=== PATIENT | male | born 2005 ===

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

== ENCOUNTER 2025-01-28 21:33 | Emergency (ER) | payer SELFPAY ==
[2025-01-28 21:35] VITALS: BP 153/102
[2025-01-28 21:36] VITALS: BP 140/92; BMI 19.4
[2025-01-28 21:51] LABS: Hematocrit 44.5 % (39.0-52.0); Hemoglobin 16.0 g/dL (13.0-18.0); Mean Corp Hgb Conc. 36.0 g/dL (33.0-37.0); Mean Corpuscular Volume 87.6 fL (80.0-94.0); Nucleated Red Blood Cells % 0 % (-); Platelet Count 233 10^3/uL (130-400); Red Cell Dist. Width 11.4 % (11.5-14.5)
[2025-01-28 22:01] VITALS: BP 125/85
[2025-01-28 22:03] LABS: ALT (SGPT) 35 U/L (0-50); AST (SGOT) 21 U/L (17-59); Albumin 5.2 g/dl (3.5-5.0); Alkaline Phosphatase 113 U/L (38-126); Blood Urea Nitrogen 11 mg/dl (9-20); Calcium 9.5 mg/dl (8.4-10.2); Carbon Dioxide 25 mmol/L (22-30); Chloride 104 mmol/L (98-107); Estimated Creatinine Clearance > 125 ml/min; Glucose 134 mg/dl (70-99); Potassium 3.9 mmol/L (3.5-5.1); Sodium 136 mmol/L (135-145); Total Protein 7.6 g/dl (6.3-8.2); eGFR > 60.00
[2025-01-28 22:14] LABS: Troponin I < 0.012 ng/ml
--- NOTE | 2025-01-28 22:53 | ED.GENMED ---
History of Present Illness
General
Chief Complaint: Chest Pain
Source: patient
Time Seen by Provider: 01/28/25 22:18
History of Present Illness
History of Present Illness:
Note:
CHIEF COMPLAINT(S)
Chest tightness and occasional pain in the side of the hand.
HISTORY OF PRESENT ILLNESS
The patient is a 19-year-old male who presents with complaints of chest tightness predominantly localized around the anterior chest area, noting that sometimes the pain radiates to the side of the hand. The onset of symptoms began over the weekend,
approximately four days ago. The patient describes the sensation mainly as a feeling of pressure in the chest, which extends to the neck at times. The patient denies any associated shortness of breath or recent physical activities that might have
provoked the symptoms, noting that the discomfort began while he was at rest.
He has a history of similar chest pain in the past, for which he was evaluated in the hospital, with the possibility of gastrointestinal issues or musculoskeletal pain considered, but no definitive diagnosis was made. The patient denies previous
heart problems, stress tests, or any other significant cardiac history.
The patient also pointed out a past ear infection around Sunday of the last week but denies any concurrent fever, chills, nausea, vomiting, significant belly pain, respiratory symptoms, or limb issues apart from occasional vein pulsation. He
noted some nausea, though not significant, and remarked that his stool occasionally appears yellow.
SOCIAL DETERMINANTS AFFECTING HEALTH
The patient reports being currently unemployed and denies any history of smoking, alcohol, or drug use. No exposure to hazardous chemicals was noted apart from distant past possibilities.
FAMILY HISTORY
The patient mentions a family history of cardiac concerns, with his mother having 'horror memories' which requires clarification but likely refers to cardiac issues, and his sister diagnosed with heart arrhythmias.
REVIEW OF SYSTEMS
- Cardiovascular: Chest tightness, pressure radiating to the neck.
- Gastrointestinal: Occasional nausea, yellow-tinged stools.
- Musculoskeletal: Discomfort in the side of the hand.
- Respiratory: Denies shortness of breath.
PHYSICAL EXAM
- Heart: Sounds normal, no murmurs detected.
- Respiratory: Lungs clear on auscultation.
- Vitals: Oxygen saturation at 99%, blood pressure 125/85 mmHg.
Nursing notes reviewed and vital signs reviewed.
PLAN
1. Conduct blood tests, including a D-dimer, to rule out possible thromboembolic events. A computed tomography scan of the chest if D-dimer results are positive.
2. Continue monitoring vital signs and cardiac status.
DIFFERENTIAL DIAGNOSIS
The Differential Diagnosis includes, in no particular order and is not limited to:
1. Gastroesophageal reflux disease (GERD)
2. Musculoskeletal chest pain
3. Panic or anxiety disorder
4. Costochondritis
5. Peptic ulcer disease
6. Pulmonary embolism
7. Pneumonia
8. Pleural effusion
9. Pericarditis
10. Non-cardiac chest pain secondary to gastrointestinal distress
Disposition:
SUMMARY OF ENCOUNTER
The patient, a 19-year-old male, presented with chest pain lasting for the past four days. He described the pain as a feeling of pressure in his chest, extending to the neck at times. The chest pain had a past occurrence, but the cause was not
definitively diagnosed. In the emergency department, a normal EKG, normal troponin, normal D-dimer, and a normal chest x-ray were noted. Based on these findings, cardiac causes were unlikely. The patient has been discharged in an improved condition
and plans to follow up with his family doctor.
DISPOSITION
Discharge.
ASSESSMENT
The patients current episode of chest pain does not appear to be cardiac-related. Given the normal test results, the pain is likely non-cardiac in origin, possibly related to gastrointestinal or musculoskeletal causes as considered in his
differential diagnosis.
PLAN
The patient will follow up with his family doctor for further evaluation and management of chest pain.
INDEPENDENT REVIEW OF LABS AND INTERPRETATION OF TESTS
- My independent review of the EKG is normal.
- My independent review of the troponin is normal.
- My independent review of D-dimer is normal.
- My independent interpretation of the chest x-ray is normal.
FOLLOW-UP INSTRUCTIONS
The patient is to follow up with their family doctor for ongoing management and evaluation of his chest pain.
MEDICAL DECISION MAKING
Chronic conditions affecting care include the patients history of similar chest pain episodes. Differential diagnoses considered include gastrointestinal reflux disease (GERD), musculoskeletal chest pain, panic or anxiety disorder, costochondritis,
peptic ulcer disease, pulmonary embolism, pneumonia, pleural effusion, pericarditis, and non-cardiac chest pain secondary to gastrointestinal distress.
- Data:
Category 1: Tests and documents reviewed include EKG, troponin, D-dimer, and chest x-ray. All were independently interpreted as normal.
- Risk: Consideration of admission/observation was deemed unnecessary given the normal test results and the patients improved condition. Discharging the patient with a plan for follow-up care was considered safe.
DIAGNOSIS
- Chest pain, unspecified R07.9.
Past History
Past History
ED Past Medical History: None
Social History
Tobacco: Smoker (medical marijuana)
Drug: Marijuana (Medical marijuana)
Phy Exam
General Physical Exam
General Presentation: well appearing and no apparent distress
General Skin: warm and dry
General Habitus: normal
General Mental: alert and anxious
General Hydration: appears well hydrated
ENT Exam
ENT Exam: EOMI, pharynx normal, neck supple and normocephalic
Eye Exam
Eye Exam: PERRL, cornea clear and conjunctiva normal
Cardiovascular Exam
Cardiovascular Exam: regular rate/rhythm, no edema, no murmur and normal peripheral pulses
Pulmonary Exam
Pulmonary Exam: lungs clear, no respiratory distress, no rales, no crackles, no rhonchi, no stridor, no wheezing and no cough
Gastrointestinal Exam
Gastrointestinal Exam: normal bowel sounds, non tender, soft, no organomegaly, no pulsatile mass and non distended
Neurological Exam
Neurological Exam: alert, oriented x3, no motor deficits and speech normal
Musculoskeletal Exam
Musculoskeletal Exam: full ROM and no edema
Skin Exam
Skin Exam: normal color, warm/dry, no rash and no petechia
Psychiatric Exam
Psychiatric Exam: normal mood/affect
Scores
Heart Score for Chest Pain Patients
STEMI patient?: No
History: Slightly or Non-Suspicious
ECG: Normal
Age: </= 45 years
Risk Factors: No Risk Factors
Troponin: </= Normal Limit
Heart Score for Chest Pain Patients: 0
Heart Score Risk: 2.5% MACE over next 6 weeks
Course
Orders/Labs/Results
Orders:
Orders
01/28/25 21:35
Electrocardiogram (*1) Urgent
Reason for Study: Chest Pain
Cardiac Monitoring- Treatment ONCE
EKG- Treatment ONCE
IV Insert/Care/Rem.- Treatment PRN
O2 Therapy [RESP] Urgent
Titrate/Wean O2 to maintain O2 sat greater than (%): 90
Special Instructions: Maintain sats >/=90%
Pulse Ox/spot Check [RESP] Urgent
Quantity: 1
Special Instructions: ON ROOM AIR
01/28/25 21:42
Complete Blood Count/With Diff Urgent
Comprehensive Metabolic Panel Urgent
Troponin I Urgent
01/28/25 21:43
Chest [CR Chest - 2 Views ] Urgent
Comment:
Reason For Exam: chest pain
01/28/25 23:03
D-Dimer Urgent
Abnormal Lab Results
01/28/25
21:42
MCH 31.5 H pg
(27.0-31.0)
RDW 11.4 L %
(11.5-14.5)
Monocytes % 9.9 H %
(1.7-9.3)
Glucose 134 H mg/dl
(70-99)
Albumin 5.2 H g/dl
(3.5-5.0)
01/28/25 21:42
01/28/25 21:42
Vital Signs
Initial and Last Documented VS:
Initial Vital Signs
BP
153/102
01/28/25 21:35
Last Documented Vital Signs
Temp Pulse Resp BP Pulse Ox
98.5 F 76 23 127/73 98
01/28/25 21:36 01/29/25 00:15 01/29/25 00:15 01/29/25 00:00 01/28/25 23:34
*Radiology
Radiology exam reviewed: all reviewed NAD by ED Provider
*Pulse Oximetry
SaO2: 98
Oxygen Mode of Delivery: Room air
Patient hypoxic: no
*Director Medical [employer] Interpretation
Rate: normal
Interpretation: normal
Heart Rate: 88
Rhythm: sinus
*Critical Care Note
Total Time (30-74mins, 75-104mins- exclusive of procedures): Not Applicable
ED Attending Note
-
Portions of this chart may have been created with voice recognition software.� Occasional wrong word or��sound alike� substitutions may have occurred due to the inherent limitations of voice recognition software.
Discharge Plan
Departure
Patient Disposition: Home (Routine Discharge)
Date of Disposition: 01/29/25
Time of Disposition: 00:32
Patient with high blood pressure during this ER visit?: Yes
Condition: Good
Discharge Problem:
Chest pain
Instructions: Chest Pain PCP Follow Up, BLOOD PRESSURE
Prescriptions:
No Action
No Current Medications
0
Referrals:
Derek Cowan MD [Family Provider, Family Practice]
Activity Restrictions/Additional Instructions:
Thank You for choosing [facility].
It was a pleasure meeting you and taking part in your care. We hope for your continued healing and wellness.
Please read discharge instructions in their entirety. However, they are for general education and may not describe your exact diagnosis at discharge. Information on your ER visit and medical conditions were discussed with you along with appropriate
follow up information...
If indicated, please take your medications as instructed and indicated on discharge paperwork.
Please schedule a follow up appointment as directed. Call to schedule an appointment
Please return to the emergency department with ANY change in, persisting, or worsening of symptoms. If any of your symptoms do not improve, or persist, or become more severe within 6-12 hours, please return to the emergency department for further
care.
Please return to the emergency department if you develop a headache, neck pain/stiffness, fever greater than 100.4F, chest pain, shortness of breath, persistent nausea, vomiting, slurred speech, difficulty walking, numbness/tingling, weakness, signs
of infection or any other symptoms that are worrisome to you.
If you have any questions or concerns please do not hesitate to call the Hospital at or E-mail me directly at [email or web address]
Interventions
Interventions:
*Risk Screen - Suicide Last Done: 01/28/25 21:36
*General Assessment Last Done: 01/28/25 21:36
*Neglect/Abuse Screening Last Done: 01/28/25 21:36
*ED- Fall Risk Assessment Last Done: 01/28/25 21:36
ED- Cardiac Assessment Last Done: 01/28/25 23:06
Discharge Date and Time
Print Language: SOU[place]
[2025-01-28 23:00] VITALS: BP 119/76
--- NOTE | 2025-01-28 23:00 | EDRN ---
Patient was updated on labs and went to CT
--- NOTE | 2025-01-28 23:08 | EDRN ---
Patient updated on labs, aware we are doing another test, provided a drink of water
[2025-01-28 23:23] LABS: D-Dimer < 0.27 ug/mlFEU (0.00-0.50)
[2025-01-29] VITALS: BP 127/73
== END 2025-01-29 00:43 | disposition home or self-care (01) ==
LOC: EMR 21:33
PROVIDERS: EMERGENCY PHYSICIAN Student in an Organized Health Care Education/Training Program; FAMILY PHYSICIAN Family Medicine
DX: R07.89 Other chest pain (principal); R11.0 Nausea; R03.0 Elevated blood-pressure reading, without diagnosis of hypertension; Z56.0 Unemployment, unspecified
CPT/HCPCS: 99284; 94760; 71046; 80053; 84484; 85025; 85379; 93005